=== PATIENT | female | born 1940 | race Caucasian/White ===

== ENCOUNTER 2017-10-04 14:02 | Emergency (ER) | payer MEDICARE, BC ==
[2017-10-04] MEDS ORDERED: Insulin Regular 300 UNITS/3 ML VIAL ONE (14:59)
[2017-10-04 15:31] LABS: #Basophils 0.1 thou/uL (0.0-0.2); #Lymphocytes 0.9 thou/uL (1.20-3.40); #Monocytes 0.5 thou/uL (0.11-0.59); %Basophils 1.8 % (0.0-1.0); %Eosinophils 0.6 % (0.0-10.0); %Monocytes 9.2 % (0.0-10.0); %Neutrophils 72.5 % (42.0-75.0); Hemoglobin 15.3 g/dL (12.0-16.0); Mean Corpuscular HGB CONC 35.6 g/dL (32.0-36.0); Mean Corpuscular Hemoglobin 31.9 pg (27.0-31.0); Mean Corpuscular Volume 89.5 fL (78.0-98.0); Platelet Count 216 thou/uL (130-400); RBC Distribution Width 10.1 % (11.5-14.5); Red Blood Cell (RBC) Count 4.81 mill/uL (4.20-5.40); White Blood Cell (WBC) Count 5.5 thou/uL (4.8-10.8)
[2017-10-04 15:41] LABS: Anion Gap 17 mmol/L (10-20); BUN (Urea Nitrogen) 17 mg/dL (9.8-20.1); Calc. Creatinine Clearance 0 mL/min (70-130); Calcium 9.8 mg/dL (7.8-10.44); Carbon Dioxide 22 mmol/L (23-31); Chloride 98 mmol/L (98-107); Estimated GFR-MDRD 50; Glucose 501 mg/dL (83-110); Magnesium 2.1 mg/dL (1.6-2.6); Phosphorus 3.4 mg/dL (2.3-4.7); Potassium 4.5 mmol/L (3.5-5.1); Sodium 132 mmol/L (136-145)
[2017-10-04 15:47] LABS: Base Excess-Venous 0.5 mmol/L (0 (+/- 2.5)); Bicarbonate (HCO3v) 26.3 mmol/L (1.0-85.0); CO2 Tension (PvCO2) 45.6 mmHg (41.0-51.0); Calcium, Ionized 1.16 mmol/L (1.12-1.32); Hemoglobin - Calc 16.2 g/dL (12.0-18.0); O2 Tension (PvO2) 26.5 mmHg (35.0-45.0); Potassium 4.1 mmol/L (3.4-4.7); T. Carbon Dioxide 27.7 mmol/L (1.0-85.0); vO2 Saturation-calc 46.6 % (94-98)
--- NOTE | 2017-10-04 19:18 | RAD ---
PORTABLE AP CHEST X-RAY 10/04/17 HISTORY: Fever. COMPARISON: 11/15/16. FINDINGS: The cardiac silhouette and pulmonary vasculature are within normal limits. The lungs are clear. Ther e is suggestion of a parenchymal opacity in the retrocardiac region left lung base on the prior study which is not seen on this exam. Vascular calcifications seen in the thoracic aorta. No other interva l change. IMPRESSION: No acute cardiopulmonary process. POS: [facility]
[2017-10-04 20:05] LABS: Bilirubin Negative (Negative); Blood, Urine Negative (Negative); Clarity Clear (Clear); Glucose, Urine (Dipstick) >=1000 mg/dL (Negative); Leukocyte Negative (Negative); Nitrite Negative (Negative); Protein, Urine (Dipstick) Negative (Neg-Trace); Specific Gravity, Urine 1.015 (1.005-1.030); Urobilinogen 0.2 mg/dL (0.2-1.0); pH, Urine 5.5 (5.0-9.0)
[2017-10-04] MEDS ORDERED: Ibuprofen 600 MG TAB ONE (20:23)
[2017-10-04] MEDS ORDERED: Acetaminophen 325 MG TAB ONE (20:23)
== END 2017-10-04 20:40 | disposition home or self-care (01) ==
LOC: SCSER 14:02
DX: E11.65 Type 2 diabetes mellitus with hyperglycemia (principal); N39.0 Urinary tract infection, site not specified; E78.5 Hyperlipidemia, unspecified; I10 Essential (primary) hypertension; Z79.4 Long term (current) use of insulin; Z79.82 Long term (current) use of aspirin; Z79.899 Other long term (current) drug therapy
CPT/HCPCS: 36416; 71045; 80048; 81003; 82010; 82330; 82803; 83735; 84100; 85025; 87086; 96361; 96374; 96376; J1815

== ENCOUNTER 2019-04-24 09:42 | Outpatient (CLI) | payer MEDICARE, BC | END 2019-04-24 09:43 | disposition home or self-care (01) | LOC: DTY/OP 09:42 | PROVIDERS: ATTEND Family Medicine | DX: E11.9 Type 2 diabetes mellitus without complications (principal) | CPT/HCPCS: 97802 ==

== ENCOUNTER 2022-03-11 14:35 | Outpatient (CLI) | payer MEDICARE, BC | END 2022-03-11 14:36 | disposition home or self-care (01) | LOC: BICCT 14:35 | PROVIDERS: ATTEND Family Medicine | DX: R55 Syncope and collapse (principal); I67.82 Cerebral ischemia; G93.89 Other specified disorders of brain; Z86.59 Personal history of other mental and behavioral disorders | CPT/HCPCS: 70470; 82565 ==

== ENCOUNTER 2022-04-22 21:02 | Emergency (ER) | payer OTHER, MEDICARE, BC | END 2022-04-22 23:10 | disposition home or self-care (01) | LOC: ERS 21:02 | DX: S06.0X0A Concussion without loss of consciousness, initial encounter (principal); E11.9 Type 2 diabetes mellitus without complications; E78.5 Hyperlipidemia, unspecified; I10 Essential (primary) hypertension; W01.0XXA Fall on same level from slipping, tripping and stumbling without subsequent striking against object, initial encounter; Z79.899 Other long term (current) drug therapy; Z79.82 Long term (current) use of aspirin | CPT/HCPCS: 70450; 93005 ==

== ENCOUNTER 2022-06-07 21:20 | Inpatient (IN) | payer MEDICARE, BC ==
[2022-06-07 22:48] VITALS: BMI 33.2
[2022-06-07] MEDS ORDERED: Ondansetron PF 4 MG/2 ML Vial IVP PRN (23:25)
[2022-06-07] MEDS ORDERED: Dextrose 50% Abboject 50 ML SYRINGE SLOW IVP PRN (23:25)
[2022-06-07] MEDS ORDERED: Dextrose 5% in Water 1,000 ML IV PRN (23:25)
[2022-06-07] MEDS ORDERED: Ondansetron ODT 4 MG TAB PO PRN (23:25)
[2022-06-08] MEDS ORDERED: Insulin Glargine 30 UNITS/0.3 ML VIAL SC SCH ×2 (00:15→21:00)
[2022-06-08] MEDS: DorzolamidE/Timolol 2%/0.5% Ophth Soln 10 ml Bottle EA EYE SCH ×3 (00:49→20:59)
[2022-06-08] MEDS: metroNIDAZOLE 500 MG in Premix Bag 1 BAG IVPB SCH ×3 (04:44→20:59)
[2022-06-08] MEDS: Acetaminophen 325 MG TAB PO PRN (08:22)
[2022-06-08] MEDS: Aspirin 81 mg Enteric Coated Tablet PO SCH (08:23)
[2022-06-08] MEDS: Lisinopril 5 MG TAB PO SCH (08:23)
[2022-06-08] MEDS: Multivitamin w/Zinc Stress 1 TAB PO SCH (08:23)
[2022-06-08] MEDS: Escitalopram Oxalate 10 mg Tablet PO SCH (08:23)
[2022-06-08] MEDS: Doxazosin Mesylate 1 MG TAB PO SCH (08:23)
[2022-06-08] MEDS: Latanoprost 0.005% Ophth Soln 2.5 ml Bottle EA EYE SCH (08:23)
[2022-06-08] MEDS: Insulin Glargine 30 UNITS/0.3 ML VIAL SC SCH (08:24)
[2022-06-08] MEDS: HumaLOG 300 UNITS/3 ML VIAL SC PRN ×2 (11:46→16:53)
[2022-06-08] MEDS ORDERED: cefTRIAXone\\ROCEPHIN 2 GM in Sodium Chloride 0.9% 100 ML IVPB SCH (18:00)
[2022-06-08] MEDS: Atorvastatin Calcium 40 MG TAB PO SCH (20:59)
[2022-06-09] MEDS: Acetaminophen 325 MG TAB PO PRN ×3 (01:29→23:50)
[2022-06-09] MEDS: metroNIDAZOLE 500 MG in Premix Bag 1 BAG IVPB SCH ×3 (04:51→20:58)
[2022-06-09 06:53] LABS: #Basophils 0.1 thou/uL (0.0-0.2); #Eosinphils 0.3 thou/uL (0.0-0.7); #Lymphocytes 2.2 thou/uL (1.20-3.40); #Monocytes 1.1 thou/uL (0.11-0.59); #Neutrophils 5.7 thou/uL (1.40-6.50); %Basophils 0.6 % (0.0-1.0); %Eosinophils 2.8 % (0.0-10.0); %Lymphocytes 23.6 % (21.0-51.0); %Monocytes 12.1 % (0.0-10.0); %Neutrophils 60.9 % (42.0-75.0); Hemoglobin 13.6 g/dL (12.0-16.0); Mean Corpuscular HGB CONC 34.8 g/dL (32.0-36.0); Mean Corpuscular Hemoglobin 34.2 pg (27.0-31.0); Mean Corpuscular Volume 98.3 fl (78.0-98.0); Mean Platelet Volume 7.7 fL (7.4-10.4); Platelet Count 250 10x3/uL (130-400); RBC Distribution Width 11.1 % (11.5-14.5); Red Blood Cell (RBC) Count 3.97 mill/uL (4.20-5.40); White Blood Cell (WBC) Count 9.3 10x3/uL (4.8-10.8)
[2022-06-09 07:09] LABS: Anion Gap 13 mmol/L (10-20); BUN (Urea Nitrogen) 16 mg/dL (9.8-20.1); Calc. Creatinine Clearance 83 mL/min (70-130); Calcium 8.7 mg/dL (7.8-10.44); Carbon Dioxide 22 mmol/L (23-31); Chloride 102 mmol/L (98-107); Estimated GFR 80; Glucose 112 mg/dL (83-110); Magnesium 1.9 mg/dL (1.6-2.6); Potassium 3.7 mmol/L (3.5-5.1); Sodium 133 mmol/L (136-145)
[2022-06-09] MEDS: DorzolamidE/Timolol 2%/0.5% Ophth Soln 10 ml Bottle EA EYE SCH ×2 (09:44→22:00)
[2022-06-09] MEDS: Latanoprost 0.005% Ophth Soln 2.5 ml Bottle EA EYE SCH (09:45)
[2022-06-09] MEDS: Doxazosin Mesylate 1 MG TAB PO SCH (09:48)
[2022-06-09] MEDS: Lisinopril 5 MG TAB PO SCH (09:48)
[2022-06-09] MEDS: Escitalopram Oxalate 10 mg Tablet PO SCH (09:48)
[2022-06-09] MEDS: Aspirin 81 mg Enteric Coated Tablet PO SCH (09:48)
[2022-06-09] MEDS: Multivitamin w/Zinc Stress 1 TAB PO SCH (09:50)
[2022-06-09] MEDS ORDERED: Magnevist 469MG/ML 20 ML VIAL ONE (10:11)
[2022-06-09] MEDS: Insulin Glargine 30 UNITS/0.3 ML VIAL SC SCH ×2 (10:11→22:02)
[2022-06-09] MEDS ORDERED: Lidocaine 1% w/Epinephrine 1:100K 20 ML VIAL ONE (10:30)
[2022-06-09] MEDS ORDERED: VANCOMYCIN 2 GRAM/500 ML BAG 2 GM in Premix Bag 1 BAG IVPB SCH (12:00)
[2022-06-09] MEDS ORDERED: TETANUS, DIPHTHERIA TOX,ADULT (TDVAX) 0.5 ML VIAL IM ONE (12:00)
[2022-06-09] MEDS: cefTRIAXone\\ROCEPHIN 1 GM in Sodium Chloride 0.9% 100 ML IVPB SCH ×2 (12:48→23:51)
[2022-06-09] MEDS ORDERED: HYDROcodone/Acetaminophen 5/325 mg Tablet PO PRN (15:05)
[2022-06-09] MEDS ORDERED: Vancomycin 1 GM in Premix Bag 1 BAG IVPB SCH (21:00)
[2022-06-09] MEDS ORDERED: Insulin Glargine 30 UNITS/0.3 ML VIAL SC SCH (21:00)
[2022-06-09] MEDS: Atorvastatin Calcium 40 MG TAB PO SCH (22:00)
[2022-06-10] MEDS: metroNIDAZOLE 500 MG in Premix Bag 1 BAG IVPB SCH ×3 (04:58→20:25)
[2022-06-10] MEDS ORDERED: Insulin Glargine 30 UNITS/0.3 ML VIAL SC SCH (09:00)
[2022-06-10] MEDS: Escitalopram Oxalate 10 mg Tablet PO SCH (09:04)
[2022-06-10] MEDS: Aspirin 81 mg Enteric Coated Tablet PO SCH (09:04)
[2022-06-10] MEDS: Multivitamin w/Zinc Stress 1 TAB PO SCH (09:04)
[2022-06-10] MEDS: Lisinopril 5 MG TAB PO SCH (09:04)
[2022-06-10] MEDS: Doxazosin Mesylate 1 MG TAB PO SCH (09:04)
[2022-06-10] MEDS: Insulin Glargine 30 UNITS/0.3 ML VIAL SC SCH ×2 (09:05→20:26)
[2022-06-10] MEDS: Latanoprost 0.005% Ophth Soln 2.5 ml Bottle EA EYE SCH (09:06)
[2022-06-10] MEDS: DorzolamidE/Timolol 2%/0.5% Ophth Soln 10 ml Bottle EA EYE SCH ×2 (10:30→20:25)
[2022-06-10] MEDS: cefTRIAXone\\ROCEPHIN 1 GM in Sodium Chloride 0.9% 100 ML IVPB SCH (10:30)
[2022-06-10] MEDS ORDERED: VANCOMYCIN 1.25 GM/250 ML BAG 1.25 GM in Premix Bag 1 BAG IVPB SCH (12:00)
[2022-06-10] MEDS: Atorvastatin Calcium 40 MG TAB PO SCH (20:26)
[2022-06-10] MEDS: Acetaminophen 325 MG TAB PO PRN (21:45)
[2022-06-11] MEDS: metroNIDAZOLE 500 MG in Premix Bag 1 BAG IVPB SCH ×3 (04:15→20:45)
[2022-06-11 09:20] LABS: #Basophils 0.1 thou/uL (0.0-0.2); #Eosinphils 0.5 thou/uL (0.0-0.7); #Neutrophils 5.6 thou/uL (1.40-6.50); %Basophils 0.6 % (0.0-1.0); %Eosinophils 5.8 % (0.0-10.0); %Monocytes 10.8 % (0.0-10.0); %Neutrophils 60.8 % (42.0-75.0); Hemoglobin 14.7 g/dL (12.0-16.0); Mean Corpuscular HGB CONC 34.2 g/dL (32.0-36.0); Mean Corpuscular Hemoglobin 33.9 pg (27.0-31.0); Mean Corpuscular Volume 98.9 fl (78.0-98.0); Mean Platelet Volume 7.2 fL (7.4-10.4); Platelet Count 321 10x3/uL (130-400); RBC Distribution Width 11.3 % (11.5-14.5); Red Blood Cell (RBC) Count 4.34 mill/uL (4.20-5.40); White Blood Cell (WBC) Count 9.2 10x3/uL (4.8-10.8)
[2022-06-11] MEDS: Doxazosin Mesylate 1 MG TAB PO SCH (09:21)
[2022-06-11] MEDS: Aspirin 81 mg Enteric Coated Tablet PO SCH (09:21)
[2022-06-11] MEDS: Multivitamin w/Zinc Stress 1 TAB PO SCH (09:21)
[2022-06-11] MEDS: Escitalopram Oxalate 10 mg Tablet PO SCH (09:21)
[2022-06-11] MEDS: Lisinopril 5 MG TAB PO SCH (09:21)
[2022-06-11] MEDS: Insulin Glargine 30 UNITS/0.3 ML VIAL SC SCH ×2 (09:22→20:46)
[2022-06-11] MEDS: Latanoprost 0.005% Ophth Soln 2.5 ml Bottle EA EYE SCH (09:27)
[2022-06-11 09:50] LABS: Anion Gap 12 mmol/L (10-20); BUN (Urea Nitrogen) 14 mg/dL (9.8-20.1); Calc. Creatinine Clearance 80 mL/min (70-130); Calcium 9.2 mg/dL (7.8-10.44); Carbon Dioxide 23 mmol/L (23-31); Chloride 101 mmol/L (98-107); Estimated GFR 77; Glucose 174 mg/dL (83-110); Potassium 4.4 mmol/L (3.5-5.1); Sodium 132 mmol/L (136-145)
[2022-06-11] MEDS: cefTRIAXone\\ROCEPHIN 1 GM in Sodium Chloride 0.9% 100 ML IVPB SCH ×3 (10:57→23:30)
[2022-06-11] MEDS: DorzolamidE/Timolol 2%/0.5% Ophth Soln 10 ml Bottle EA EYE SCH ×2 (11:02→20:45)
[2022-06-11 11:27] LABS: Vancomycin, Trough 5.6 ug/mL
[2022-06-11] MEDS: Vancomycin 1 GM in Premix Bag 1 BAG IVPB SCH (13:43)
[2022-06-11] MEDS: Atorvastatin Calcium 40 MG TAB PO SCH (20:45)
[2022-06-11] MEDS: HumaLOG 300 UNITS/3 ML VIAL SC PRN (20:47)
[2022-06-12] MEDS: Vancomycin 1 GM in Premix Bag 1 BAG IVPB SCH (00:55)
[2022-06-12] MEDS: metroNIDAZOLE 500 MG in Premix Bag 1 BAG IVPB SCH (04:20)
[2022-06-12] MEDS: Acetaminophen 325 MG TAB PO PRN ×3 (04:30→21:12)
[2022-06-12 08:08] LABS: #Eosinphils 0.3 thou/uL (0.0-0.7); #Lymphocytes 2.1 thou/uL (1.20-3.40); #Monocytes 1.2 thou/uL (0.11-0.59); #Neutrophils 7.5 thou/uL (1.40-6.50); %Basophils 0.4 % (0.0-1.0); %Eosinophils 2.9 % (0.0-10.0); %Lymphocytes 18.5 % (21.0-51.0); %Neutrophils 67.2 % (42.0-75.0); Hemoglobin 13.8 g/dL (12.0-16.0); Mean Corpuscular HGB CONC 34.4 g/dL (32.0-36.0); Mean Corpuscular Hemoglobin 33.7 pg (27.0-31.0); Mean Platelet Volume 7.2 fL (7.4-10.4); Platelet Count 298 10x3/uL (130-400); RBC Distribution Width 11.2 % (11.5-14.5); Red Blood Cell (RBC) Count 4.11 mill/uL (4.20-5.40); White Blood Cell (WBC) Count 11.2 10x3/uL (4.8-10.8)
[2022-06-12 08:35] LABS: Anion Gap 13 mmol/L (10-20); BUN (Urea Nitrogen) 13 mg/dL (9.8-20.1); Calc. Creatinine Clearance 85 mL/min (70-130); Calcium 8.9 mg/dL (7.8-10.44); Carbon Dioxide 23 mmol/L (23-31); Chloride 100 mmol/L (98-107); Estimated GFR 83; Glucose 122 mg/dL (83-110); Potassium 3.8 mmol/L (3.5-5.1); Sodium 132 mmol/L (136-145)
[2022-06-12] MEDS: Escitalopram Oxalate 10 mg Tablet PO SCH (08:53)
[2022-06-12] MEDS: Multivitamin w/Zinc Stress 1 TAB PO SCH (08:53)
[2022-06-12] MEDS: Doxazosin Mesylate 1 MG TAB PO SCH (08:53)
[2022-06-12] MEDS: Lisinopril 5 MG TAB PO SCH (08:53)
[2022-06-12] MEDS: Aspirin 81 mg Enteric Coated Tablet PO SCH (08:53)
[2022-06-12] MEDS: DorzolamidE/Timolol 2%/0.5% Ophth Soln 10 ml Bottle EA EYE SCH ×2 (08:55→21:06)
[2022-06-12] MEDS: Insulin Glargine 30 UNITS/0.3 ML VIAL SC SCH ×2 (08:56→21:06)
[2022-06-12] MEDS ORDERED: metroNIDAZOLE 500 MG TAB PO SCH (10:05)
[2022-06-12] MEDS ORDERED: Doxycycline 100 MG CAP PO SCH (10:05)
[2022-06-12] MEDS ORDERED: Cefdinir 300 MG CAP PO SCH (10:05)
[2022-06-12] MEDS: Latanoprost 0.005% Ophth Soln 2.5 ml Bottle EA EYE SCH (10:44)
[2022-06-12] MEDS: metroNIDAZOLE 500 MG TAB PO SCH ×2 (14:48→21:06)
[2022-06-12] MEDS: Doxycycline 100 MG CAP PO SCH (21:06)
[2022-06-12] MEDS: Cefdinir 300 MG CAP PO SCH (21:06)
[2022-06-12] MEDS: Atorvastatin Calcium 40 MG TAB PO SCH (21:06)
[2022-06-13] MEDS: metroNIDAZOLE 500 MG TAB PO SCH ×3 (10:37→21:33)
[2022-06-13] MEDS: Doxazosin Mesylate 1 MG TAB PO SCH (10:37)
[2022-06-13] MEDS: Doxycycline 100 MG CAP PO SCH ×2 (10:37→21:33)
[2022-06-13] MEDS: Escitalopram Oxalate 10 mg Tablet PO SCH (10:37)
[2022-06-13] MEDS: Cefdinir 300 MG CAP PO SCH ×2 (10:37→21:33)
[2022-06-13] MEDS: Aspirin 81 mg Enteric Coated Tablet PO SCH (10:37)
[2022-06-13] MEDS: Lisinopril 5 MG TAB PO SCH (10:37)
[2022-06-13] MEDS: DorzolamidE/Timolol 2%/0.5% Ophth Soln 10 ml Bottle EA EYE SCH ×2 (10:37→21:34)
[2022-06-13] MEDS: Multivitamin w/Zinc Stress 1 TAB PO SCH (10:37)
[2022-06-13] MEDS: Latanoprost 0.005% Ophth Soln 2.5 ml Bottle EA EYE SCH (10:38)
[2022-06-13] MEDS: Insulin Glargine 30 UNITS/0.3 ML VIAL SC SCH ×2 (10:38→21:34)
[2022-06-13] MEDS: Acetaminophen 325 MG TAB PO PRN (10:43)
[2022-06-13] MEDS: HumaLOG 300 UNITS/3 ML VIAL SC PRN ×2 (18:18→21:33)
[2022-06-13] MEDS: Atorvastatin Calcium 40 MG TAB PO SCH (21:33)
[2022-06-14] MEDS: Acetaminophen 325 MG TAB PO PRN (06:17)
[2022-06-14 07:44] VITALS: BP 125/73; TEMP 98.4
[2022-06-14] MEDS: Doxazosin Mesylate 1 MG TAB PO SCH (08:45)
[2022-06-14] MEDS: Aspirin 81 mg Enteric Coated Tablet PO SCH (08:45)
[2022-06-14] MEDS: Doxycycline 100 MG CAP PO SCH (08:45)
[2022-06-14] MEDS: Multivitamin w/Zinc Stress 1 TAB PO SCH (08:45)
[2022-06-14] MEDS: Lisinopril 5 MG TAB PO SCH (08:45)
[2022-06-14] MEDS: Escitalopram Oxalate 10 mg Tablet PO SCH (08:45)
[2022-06-14] MEDS: Insulin Glargine 30 UNITS/0.3 ML VIAL SC SCH (08:45)
[2022-06-14] MEDS: metroNIDAZOLE 500 MG TAB PO SCH ×2 (08:45→14:50)
[2022-06-14] MEDS: Cefdinir 300 MG CAP PO SCH (08:45)
[2022-06-14] MEDS: DorzolamidE/Timolol 2%/0.5% Ophth Soln 10 ml Bottle EA EYE SCH (10:03)
[2022-06-14] MEDS: Latanoprost 0.005% Ophth Soln 2.5 ml Bottle EA EYE SCH (10:03)
== END 2022-06-14 17:28 | DRG 603 ==
LOC: T4-B 22:40 → OBSVTOIN 23:25
PROVIDERS: ADMIT Student in an Organized Health Care Education/Training Program; ATTEND Family Medicine
PROC: 0J9G0ZZ Drainage of Right Lower Arm Subcutaneous Tissue and Fascia, Open Approach (ICD-10-PCS; principal; 2022-06-07)
DX: L03.113 Cellulitis of right upper limb (principal); S51.851A Open bite of right forearm, initial encounter; W55.01XA Bitten by cat, initial encounter; I10 Essential (primary) hypertension; E78.5 Hyperlipidemia, unspecified; E11.9 Type 2 diabetes mellitus without complications; H40.9 Unspecified glaucoma; F32.A Depression, unspecified; Z88.0 Allergy status to penicillin; Z88.5 Allergy status to narcotic agent; Z79.4 Long term (current) use of insulin; Z79.82 Long term (current) use of aspirin; Z79.899 Other long term (current) drug therapy; Z90.09 Acquired absence of other part of head and neck; L02.413 Cutaneous abscess of right upper limb; S82.832A Other fracture of upper and lower end of left fibula, initial encounter for closed fracture; X58.XXXA Exposure to other specified factors, initial encounter
CPT/HCPCS: 36415; 36416; 80048; 80053; 80202; 83605; 83735; 85025; 86140; 87070; 87205; 90471; 90715; 93005; 93010; 96365; 96367; A9579; J0696; J1815; J3370; J3370-JW; J3490

== ENCOUNTER 2023-02-19 16:25 | Inpatient (IN) | payer OTHER, MEDICARE, BC ==
[2023-02-19 17:12] LABS: #Basophils 0.1 thou/uL (0.0-0.2); #Eosinphils 0.2 thou/uL (0.0-0.7); #Monocytes 0.7 thou/uL (0.11-0.59); #Neutrophils 4.7 thou/uL (1.40-6.50); %Basophils 1.2 % (0.0-1.0); %Lymphocytes 24.5 % (21.0-51.0); %Monocytes 9.4 % (0.0-10.0); %Neutrophils 62.1 % (42.0-75.0); Hematocrit 45.5 % (36.0-47.0); Hemoglobin 15.2 g/dL (12.0-16.0); Mean Corpuscular HGB CONC 33.4 g/dL (32.0-36.0); Mean Corpuscular Hemoglobin 31.7 pg (27.0-31.0); Mean Platelet Volume 9.3 fL (7.4-10.4); Platelet Count 332 10x3/uL (130-400); Red Blood Cell (RBC) Count 4.79 mill/uL (4.20-5.40); White Blood Cell (WBC) Count 7.6 10x3/uL (4.8-10.8)
[2023-02-19 17:39] LABS: ALT (SGPT) 20 U/L (8-55); AST (SGOT) 21 U/L (5-34); Albumin 4.1 g/dL (3.4-4.8); Alkaline Phosphatase 62 U/L (40-110); Anion Gap 15 mmol/L (10-20); BUN (Urea Nitrogen) 18 mg/dL (9.8-20.1); Bilirubin, Total 0.4 mg/dL (0.2-1.2); CK (CPK) 73 U/L (29-168); Calc. Creatinine Clearance 0 mL/min (70-130); Calcium 9.4 mg/dL (7.8-10.44); Carbon Dioxide 25 mmol/L (23-31); Chloride 100 mmol/L (98-107); Estimated GFR 69; Globulin 3.3 g/dL (2.4-3.5); Glucose 206 mg/dL (83-110); Lipase 168 U/L (8-78); Potassium 3.9 mmol/L (3.5-5.1); Protein, Total 7.4 g/dL (5.8-8.1); Sodium 136 mmol/L (136-145)
[2023-02-19 17:43] LABS: Troponin I Less than 0.010 ng/mL (< 0.028)
[2023-02-19 18:26] LABS: Prothrombin Time 13.9 sec (12.0-14.7)
[2023-02-19] MEDS ORDERED: Lidocaine 1% PF 5 ML VIAL ONE ×2 (18:47→18:48)
[2023-02-19] MEDS ORDERED: Ondansetron ODT 4 MG TAB PO PRN (20:36)
[2023-02-19] MEDS ORDERED: TETANUS, DIPHTHERIA TOX,ADULT (TDVAX) 0.5 ML VIAL IM ONE (20:36)
[2023-02-19] MEDS ORDERED: Glucagon 1 MG/ML KIT IM PRN (20:36)
[2023-02-19] MEDS ORDERED: Dextrose 50% Abboject 50 ML SYRINGE SLOW IVP PRN (20:36)
[2023-02-19] MEDS ORDERED: Dextrose 5% in Water 1,000 ML IV PRN (20:36)
[2023-02-19] MEDS ORDERED: Lidocaine 1% w/Epinephrine 1:100K 20 ML VIAL ONE (21:23)
[2023-02-19] MEDS: Famotidine 20 MG TAB PO SCH (21:53)
[2023-02-19] MEDS: traMADol HCl 50 MG TAB PO PRN (21:54)
[2023-02-19] MEDS: Ondansetron PF 4 MG/2 ML Vial IVP PRN (21:54)
[2023-02-19] MEDS ORDERED: Scopolamine 1 mg/72 hour Patch TD SCH (22:00)
[2023-02-19 22:47] LABS: Troponin I 0.016 ng/mL (< 0.028)
[2023-02-19] MEDS: Insulin Glargine 30 UNITS/0.3 ML VIAL SC SCH (23:19)
[2023-02-20] MEDS: Acetaminophen 325 MG TAB PO PRN ×4 (01:02→22:16)
[2023-02-20 02:14] LABS: Bilirubin Negative (Negative); Blood, Urine Negative (Negative); CAUTI Indications for Culture Alt mental st,lethar; Clarity Clear (Clear); Glucose, Urine (Dipstick) Greater than 1000 mg/dL (Negative); Ketone, Urine Negative (Negative); Leukocyte Negative Leu/uL (Negative); Nitrite Negative (Negative); Protein, Urine (Dipstick) Negative (Neg-Trace); RBC/HPF 0-3 HPF (0-3); Specific Gravity, Urine 1.038 (1.002-1.036); Squamous Epithelial 0-3 HPF (0-3); Urobilinogen Normal mg/dL (Less than 2); WBC/HPF 0-3 HPF (0-3); pH, Urine 6.5 (5.0-9.0)
[2023-02-20 02:15] LABS: Bacteria/HPF 4+ HPF (None Seen)
[2023-02-20 02:16] LABS: Urine Culture Reflex No No
[2023-02-20 05:01] LABS: Troponin I Less than 0.010 ng/mL (< 0.028)
[2023-02-20 09:02] LABS: Troponin I Less than 0.010 ng/mL (< 0.028)
[2023-02-20] MEDS: HumaLOG 300 UNITS/3 ML VIAL SC PRN ×2 (13:15→18:48)
[2023-02-20] MEDS: Insulin Glargine 30 UNITS/0.3 ML VIAL SC SCH (20:50)
[2023-02-20] MEDS: Famotidine 20 MG TAB PO SCH (20:50)
[2023-02-21 05:55] LABS: #Basophils 0.1 thou/uL (0.0-0.2); #Eosinphils 0.2 thou/uL (0.0-0.7); %Basophils 1.1 % (0.0-1.0); %Eosinophils 2.6 % (0.0-10.0); %Lymphocytes 30.5 % (21.0-51.0); %Monocytes 10.4 % (0.0-10.0); %Neutrophils 54.9 % (42.0-75.0); Mean Corpuscular HGB CONC 34.1 g/dL (32.0-36.0); Mean Corpuscular Hemoglobin 32.4 pg (27.0-31.0); Mean Corpuscular Volume 94.9 fl (78.0-98.0); Mean Platelet Volume 9.5 fL (7.4-10.4); Platelet Count 281 10x3/uL (130-400); RBC Distribution Width 11.9 % (11.5-14.5); Red Blood Cell (RBC) Count 4.32 mill/uL (4.20-5.40); White Blood Cell (WBC) Count 9.1 10x3/uL (4.8-10.8)
[2023-02-21 06:17] LABS: Anion Gap 14 mmol/L (10-20); BUN (Urea Nitrogen) 15 mg/dL (9.8-20.1); Calc. Creatinine Clearance 75 mL/min (70-130); Calcium 8.6 mg/dL (7.8-10.44); Carbon Dioxide 25 mmol/L (23-31); Chloride 98 mmol/L (98-107); Estimated GFR 76; Glucose 128 mg/dL (83-110); Magnesium 1.8 mg/dL (1.6-2.6); Phosphorus 3.1 mg/dL (2.3-4.7); Potassium 3.5 mmol/L (3.5-5.1); Sodium 133 mmol/L (136-145)
[2023-02-21 06:35] VITALS: BMI 30.4
[2023-02-21] MEDS: Acetaminophen 325 MG TAB PO PRN (06:48)
[2023-02-21] MEDS: traMADol HCl 50 MG TAB PO PRN (08:50)
[2023-02-21] MEDS: Ondansetron PF 4 MG/2 ML Vial IVP PRN (08:50)
[2023-02-21] MEDS: HumaLOG 300 UNITS/3 ML VIAL SC PRN (12:41)
[2023-02-21 12:46] VITALS: BP 131/53; TEMP 98.3
[2023-02-21] MEDS ORDERED: Triple Antibiotic Ointment 15 GM TUBE TOP SCH (21:00)
[2023-02-22] MEDS ORDERED: Polyethylene Glycol 3350 17 GM Packet PO SCH (09:00)
[2023-02-22] MEDS ORDERED: Senokot 8.6 MG TAB PO SCH (09:00)
== END 2023-02-21 14:23 | disposition home or self-care (01) | DRG 84 ==
LOC: ERS 16:25 → 2SE 19:26 → OBSVTOIN 02-20 15:58
PROVIDERS: ADMIT Surgery; ATTEND Surgery
PROC: 0HQ0XZZ Repair Scalp Skin, External Approach (ICD-10-PCS; principal; 2023-02-19)
PROC: 0HQ0XZZ Repair Scalp Skin, External Approach (ICD-10-PCS; 2023-02-19)
PROC: 0HC0XZZ Extirpation of Matter from Scalp Skin, External Approach (ICD-10-PCS; 2023-02-19)
DX: S06.6X9A Traumatic subarachnoid hemorrhage with loss of consciousness of unspecified duration, initial encounter (principal); S01.01XA Laceration without foreign body of scalp, initial encounter; I10 Essential (primary) hypertension; E78.5 Hyperlipidemia, unspecified; Z79.899 Other long term (current) drug therapy; Z79.4 Long term (current) use of insulin; F32.A Depression, unspecified; E11.9 Type 2 diabetes mellitus without complications; Z90.710 Acquired absence of both cervix and uterus; Z90.49 Acquired absence of other specified parts of digestive tract; Z83.3 Family history of diabetes mellitus; Z88.0 Allergy status to penicillin; Z88.8 Allergy status to other drugs, medicaments and biological substances; Z79.82 Long term (current) use of aspirin; W01.198A Fall on same level from slipping, tripping and stumbling with subsequent striking against other object, initial encounter
CPT/HCPCS: 12001; 36415; 36416; 70450; 71045; 72125; 80048; 80053; 81001; 82550; 83690; 83735; 84100; 84443; 84484; 85025; 85610; 85730; 93005; 93880; 96374; G0378; J1815; J2405

== ENCOUNTER 2023-05-07 11:37 | Inpatient (IN) | payer MEDICARE, BC ==
[2023-05-07] MEDS ORDERED: Ondansetron PF 4 MG/2 ML Vial ONE (12:14)
[2023-05-07] MEDS ORDERED: Acetaminophen 500 MG TAB ONE (12:14)
[2023-05-07 12:32] LABS: #Basophils 0.1 thou/uL (0.0-0.2); #Eosinphils 0.1 thou/uL (0.0-0.7); #Monocytes 0.9 thou/uL (0.11-0.59); #Neutrophils 4.7 thou/uL (1.40-6.50); %Basophils 0.9 % (0.0-1.0); %Eosinophils 1.3 % (0.0-10.0); %Lymphocytes 14.9 % (21.0-51.0); %Monocytes 13.2 % (0.0-10.0); %Neutrophils 69.1 % (42.0-75.0); Hematocrit 41.7 % (36.0-47.0); Mean Corpuscular HGB CONC 33.6 g/dL (32.0-36.0); Mean Corpuscular Hemoglobin 31.8 pg (27.0-31.0); Mean Corpuscular Volume 94.8 fl (78.0-98.0); Mean Platelet Volume 9.8 fL (7.4-10.4); Platelet Count 237 10x3/uL (130-400); RBC Distribution Width 12.3 % (11.5-14.5); White Blood Cell (WBC) Count 6.8 10x3/uL (4.8-10.8)
[2023-05-07 12:45] LABS: INR-International Normal Ratio 1.1; Prothrombin Time 14.3 sec (12.0-14.7)
[2023-05-07 12:46] LABS: PTT 30.7 sec (22.9-36.1)
[2023-05-07 12:55] LABS: ALT (SGPT) 25 U/L (8-55); AST (SGOT) 23 U/L (5-34); Albumin 3.9 g/dL (3.4-4.8); Alkaline Phosphatase 59 U/L (40-110); Anion Gap 12 mmol/L (10-20); BUN (Urea Nitrogen) 11 mg/dL (9.8-20.1); Bilirubin, Total 0.6 mg/dL (0.2-1.2); Calc. Creatinine Clearance 0 mL/min (70-130); Calcium 8.8 mg/dL (7.8-10.44); Carbon Dioxide 24 mmol/L (23-31); Chloride 102 mmol/L (98-107); Estimated GFR 81; Globulin 3.1 g/dL (2.4-3.5); Glucose 86 mg/dL (83-110); Sodium 134 mmol/L (136-145)
[2023-05-07 12:59] LABS: Troponin I 0.019 ng/mL (< 0.028)
[2023-05-07] MEDS ORDERED: Dextrose 50% Abboject 50 ML SYRINGE SLOW IVP PRN (13:37)
[2023-05-07] MEDS ORDERED: Dextrose 5% in Water 1,000 ML IV PRN (13:37)
[2023-05-07] MEDS ORDERED: Glucagon 1 MG/ML KIT IM PRN (13:37)
[2023-05-07 14:10] LABS: Hemoglobin A1c 8.4 % (4.0-6.0)
[2023-05-07 14:29] LABS: Troponin I Less than 0.010 ng/mL (< 0.028)
[2023-05-07 15:32] VITALS: BMI 32.9
[2023-05-07] MEDS: Bacitracin 1 PK TOP SCH (16:22)
[2023-05-07 17:27] LABS: Troponin I Less than 0.010 ng/mL (< 0.028)
[2023-05-07] MEDS: Boostrix 0.5 ML (Tdap) VIAL (>/=7 yrs of age) IM ONE (20:17)
[2023-05-07] MEDS: Latanoprost 0.005% Ophth Soln 2.5 ml Bottle EA EYE SCH (20:20)
[2023-05-08] MEDS: Acetaminophen 325 MG TAB PO PRN (00:16)
[2023-05-08 05:10] LABS: #Basophils 0.1 thou/uL (0.0-0.2); #Eosinphils 0.1 thou/uL (0.0-0.7); #Monocytes 1.1 thou/uL (0.11-0.59); #Neutrophils 4.4 thou/uL (1.40-6.50); %Basophils 0.8 % (0.0-1.0); %Eosinophils 1.3 % (0.0-10.0); %Lymphocytes 21.3 % (21.0-51.0); %Monocytes 14.6 % (0.0-10.0); %Neutrophils 61.4 % (42.0-75.0); Hematocrit 38.4 % (36.0-47.0); Mean Corpuscular HGB CONC 33.9 g/dL (32.0-36.0); Mean Corpuscular Hemoglobin 32.1 pg (27.0-31.0); Mean Corpuscular Volume 94.8 fl (78.0-98.0); Mean Platelet Volume 10.3 fL (7.4-10.4); Platelet Count 241 10x3/uL (130-400); RBC Distribution Width 12.3 % (11.5-14.5); Red Blood Cell (RBC) Count 4.05 mill/uL (4.20-5.40); White Blood Cell (WBC) Count 7.2 10x3/uL (4.8-10.8)
[2023-05-08 05:32] LABS: ALT (SGPT) 22 U/L (8-55); AST (SGOT) 19 U/L (5-34); Albumin 3.5 g/dL (3.4-4.8); Alkaline Phosphatase 54 U/L (40-110); Bilirubin, Direct 0.2 mg/dL (0.1-0.3); Bilirubin, Total 0.5 mg/dL (0.2-1.2); Protein, Total 6.1 g/dL (5.8-8.1)
[2023-05-08 05:45] LABS: Anion Gap 8 mmol/L (10-20); BUN (Urea Nitrogen) 12 mg/dL (9.8-20.1); Calc. Creatinine Clearance 87 mL/min (70-130); Calcium 8.3 mg/dL (7.8-10.44); Carbon Dioxide 23 mmol/L (23-31); Cardiac Risk 3.7 (Less than 4.5); Chloride 102 mmol/L (98-107); Cholesterol 88 mg/dl (< 200 Desired); Estimated GFR 87; Glucose 135 mg/dL (83-110); HDL Cholesterol 24 mg/dL (>60 Neg Risk); LDL Cholesterol, Calculated 43 mg/dL; Potassium 3.4 mmol/L (3.5-5.1); Sodium 130 mmol/L (136-145); Triglycerides 107 mg/dL (Less than 150)
[2023-05-08 05:54] LABS: Thyroid Stimulating Hormone 1.6747 uIU/mL (0.35-4.94)
[2023-05-08] MEDS: Empagliflozin 25 MG TAB PO SCH (08:47)
[2023-05-08] MEDS: Doxazosin Mesylate 1 MG TAB PO SCH (08:47)
[2023-05-08] MEDS: Lisinopril 2.5 MG TAB PO SCH (08:47)
[2023-05-08] MEDS: Multivitamin w/Zinc Stress 1 TAB PO SCH (08:47)
[2023-05-08] MEDS: Escitalopram Oxalate 10 mg Tablet PO SCH (08:47)
[2023-05-08] MEDS: Atorvastatin Calcium 20 MG TAB PO SCH (08:47)
[2023-05-08] MEDS: Potassium Chloride 20 MEQ TAB PO SCH (08:47)
[2023-05-08 13:04] LABS: Bacteria/HPF None Seen HPF (None Seen); Bilirubin Negative (Negative); Blood, Urine Negative (Negative); CAUTI Indications for Culture Fever or rigors; Clarity Clear (Clear); Glucose, Urine (Dipstick) Greater than 1000 mg/dL (Negative); Ketone, Urine Negative (Negative); Leukocyte Negative Leu/uL (Negative); Nitrite Negative (Negative); Protein, Urine (Dipstick) Negative (Neg-Trace); RBC/HPF 0-3 HPF (0-3); Specific Gravity, Urine 1.033 (1.002-1.036); Squamous Epithelial 0-3 HPF (0-3); Urobilinogen Normal mg/dL (Less than 2); WBC/HPF 0-3 HPF (0-3)
[2023-05-08 13:06] LABS: Urine Culture Reflex No No
[2023-05-09 05:26] LABS: #Basophils 0.1 thou/uL (0.0-0.2); #Eosinphils 0.1 thou/uL (0.0-0.7); #Monocytes 1.2 thou/uL (0.11-0.59); #Neutrophils 5.4 thou/uL (1.40-6.50); %Basophils 0.8 % (0.0-1.0); %Eosinophils 0.8 % (0.0-10.0); %Lymphocytes 14.7 % (21.0-51.0); %Monocytes 14.9 % (0.0-10.0); %Neutrophils 68.3 % (42.0-75.0); Hematocrit 42.3 % (36.0-47.0); Hemoglobin 14.4 g/dL (12.0-16.0); Mean Corpuscular Hemoglobin 31.8 pg (27.0-31.0); Mean Corpuscular Volume 93.4 fl (78.0-98.0); Mean Platelet Volume 10.4 fL (7.4-10.4); Platelet Count 233 10x3/uL (130-400); RBC Distribution Width 12.1 % (11.5-14.5); Red Blood Cell (RBC) Count 4.53 mill/uL (4.20-5.40)
[2023-05-09 05:44] LABS: Anion Gap 14 mmol/L (10-20); BUN (Urea Nitrogen) 12 mg/dL (9.8-20.1); Calc. Creatinine Clearance 84 mL/min (70-130); Calcium 8.8 mg/dL (7.8-10.44); Carbon Dioxide 23 mmol/L (23-31); Chloride 97 mmol/L (98-107); Estimated GFR 84; Glucose 117 mg/dL (83-110); Magnesium 1.9 mg/dL (1.6-2.6); Potassium 3.7 mmol/L (3.5-5.1); Sodium 130 mmol/L (136-145)
[2023-05-09] MEDS: Scopolamine 1 mg/72 hour Patch TD SCH (17:52)
[2023-05-09] MEDS: HumaLOG 300 UNITS/3 ML VIAL SC PRN (17:57)
[2023-05-10] MEDS: Ondansetron PF 4 MG/2 ML Vial IVP PRN (00:25)
[2023-05-10 05:19] LABS: #Basophils 0.1 thou/uL (0.0-0.2); #Eosinphils 0.1 thou/uL (0.0-0.7); #Monocytes 1.2 thou/uL (0.11-0.59); #Neutrophils 3.8 thou/uL (1.40-6.50); %Basophils 0.8 % (0.0-1.0); %Eosinophils 0.9 % (0.0-10.0); %Lymphocytes 22.5 % (21.0-51.0); %Monocytes 17.7 % (0.0-10.0); %Neutrophils 57.3 % (42.0-75.0); Hematocrit 40.9 % (36.0-47.0); Hemoglobin 14.2 g/dL (12.0-16.0); Mean Corpuscular HGB CONC 34.7 g/dL (32.0-36.0); Mean Corpuscular Hemoglobin 31.7 pg (27.0-31.0); Mean Corpuscular Volume 91.3 fl (78.0-98.0); Mean Platelet Volume 9.7 fL (7.4-10.4); Platelet Count 252 10x3/uL (130-400); RBC Distribution Width 11.9 % (11.5-14.5); Red Blood Cell (RBC) Count 4.48 mill/uL (4.20-5.40); White Blood Cell (WBC) Count 6.5 10x3/uL (4.8-10.8)
[2023-05-10 05:43] LABS: Anion Gap 16 mmol/L (10-20); BUN (Urea Nitrogen) 15 mg/dL (9.8-20.1); Calc. Creatinine Clearance 84 mL/min (70-130); Calcium 8.4 mg/dL (7.8-10.44); Carbon Dioxide 23 mmol/L (23-31); Chloride 94 mmol/L (98-107); Estimated GFR 84; Glucose 116 mg/dL (83-110); Magnesium 1.9 mg/dL (1.6-2.6); Potassium 3.8 mmol/L (3.5-5.1); Sodium 129 mmol/L (136-145)
[2023-05-10 12:41] LABS: Anion Gap 14 mmol/L (10-20); BUN (Urea Nitrogen) 16 mg/dL (9.8-20.1); Calc. Creatinine Clearance 82 mL/min (70-130); Calcium 8.9 mg/dL (7.8-10.44); Carbon Dioxide 24 mmol/L (23-31); Chloride 95 mmol/L (98-107); Estimated GFR 81; Glucose 112 mg/dL (83-110); Potassium 4.2 mmol/L (3.5-5.1); Sodium 129 mmol/L (136-145)
[2023-05-10] MEDS ORDERED: Lidocaine 1% w/Epinephrine 1:100K 20 ML VIAL ONE ×2 (13:30→13:40)
[2023-05-10] MEDS: HumaLOG 300 UNITS/3 ML VIAL SC PRN (20:37)
[2023-05-11 05:03] LABS: Anion Gap 14 mmol/L (10-20); BUN (Urea Nitrogen) 18 mg/dL (9.8-20.1); Calc. Creatinine Clearance 76 mL/min (70-130); Calcium 8.7 mg/dL (7.8-10.44); Carbon Dioxide 22 mmol/L (23-31); Chloride 95 mmol/L (98-107); Estimated GFR 74; Glucose 144 mg/dL (83-110); Potassium 3.8 mmol/L (3.5-5.1); Sodium 127 mmol/L (136-145)
[2023-05-11 05:24] LABS: #Basophils 0.1 thou/uL (0.0-0.2); #Monocytes 1.2 thou/uL (0.11-0.59); #Neutrophils 4.3 thou/uL (1.40-6.50); %Basophils 0.8 % (0.0-1.0); %Eosinophils 0.6 % (0.0-10.0); %Lymphocytes 20.8 % (21.0-51.0); %Monocytes 17.2 % (0.0-10.0); %Neutrophils 59.6 % (42.0-75.0); Hematocrit 41.3 % (36.0-47.0); Hemoglobin 14.3 g/dL (12.0-16.0); Mean Corpuscular HGB CONC 34.6 g/dL (32.0-36.0); Mean Corpuscular Volume 92.4 fl (78.0-98.0); Mean Platelet Volume 9.6 fL (7.4-10.4); Platelet Count 301 10x3/uL (130-400); RBC Distribution Width 12.1 % (11.5-14.5); Red Blood Cell (RBC) Count 4.47 mill/uL (4.20-5.40); White Blood Cell (WBC) Count 7.2 10x3/uL (4.8-10.8)
[2023-05-11 11:03] LABS: Anion Gap 14 mmol/L (10-20); BUN (Urea Nitrogen) 20 mg/dL (9.8-20.1); Calc. Creatinine Clearance 77 mL/min (70-130); Carbon Dioxide 21 mmol/L (23-31); Chloride 96 mmol/L (98-107); Estimated GFR 75; Glucose 200 mg/dL (83-110); Potassium 4.2 mmol/L (3.5-5.1); Sodium 127 mmol/L (136-145)
[2023-05-11] MEDS: Escitalopram Oxalate 10 mg Tablet PO SCH (11:47)
[2023-05-11] MEDS: HumaLOG 300 UNITS/3 ML VIAL SC PRN (11:49)
[2023-05-11 21:53] LABS: Anion Gap 16 mmol/L (10-20); BUN (Urea Nitrogen) 26 mg/dL (9.8-20.1); Calc. Creatinine Clearance 51 mL/min (70-130); Calcium 9.4 mg/dL (7.8-10.44); Carbon Dioxide 20 mmol/L (23-31); Chloride 96 mmol/L (98-107); Estimated GFR 46; Glucose 205 mg/dL (83-110); Potassium 4.7 mmol/L (3.5-5.1); Sodium 127 mmol/L (136-145)
[2023-05-11] MEDS: Insulin Glargine 30 UNITS/0.3 ML VIAL SC SCH (22:05)
[2023-05-12 05:46] LABS: Anion Gap 14 mmol/L (10-20); BUN (Urea Nitrogen) 25 mg/dL (9.8-20.1); Calc. Creatinine Clearance 75 mL/min (70-130); Calcium 8.8 mg/dL (7.8-10.44); Carbon Dioxide 21 mmol/L (23-31); Chloride 97 mmol/L (98-107); Estimated GFR 73; Glucose 170 mg/dL (83-110); Magnesium 2.1 mg/dL (1.6-2.6); Potassium 4.1 mmol/L (3.5-5.1); Sodium 128 mmol/L (136-145)
[2023-05-12] MEDS: Escitalopram Oxalate 10 mg Tablet PO SCH (10:31)
[2023-05-12 10:36] LABS: Anion Gap 18 mmol/L (10-20); BUN (Urea Nitrogen) 24 mg/dL (9.8-20.1); Calc. Creatinine Clearance 69 mL/min (70-130); Calcium 9.5 mg/dL (7.8-10.44); Carbon Dioxide 19 mmol/L (23-31); Chloride 98 mmol/L (98-107); Estimated GFR 66; Glucose 168 mg/dL (83-110); Potassium 4.1 mmol/L (3.5-5.1); Sodium 131 mmol/L (136-145)
[2023-05-12] MEDS: Fludrocortisone Acetate 0.1 MG TAB PO SCH (18:26)
[2023-05-12] MEDS: Insulin Glargine 30 UNITS/0.3 ML VIAL SC SCH (20:29)
[2023-05-12] MEDS: HumaLOG 300 UNITS/3 ML VIAL SC PRN (22:23)
[2023-05-12] MEDS: DorzolamidE/Timolol 2%/0.5% Ophth Soln 10 ml Bottle EA EYE SCH (22:23)
[2023-05-13 06:02] LABS: Anion Gap 16 mmol/L (10-20); BUN (Urea Nitrogen) 27 mg/dL (9.8-20.1); Calc. Creatinine Clearance 70 mL/min (70-130); Calcium 8.8 mg/dL (7.8-10.44); Carbon Dioxide 22 mmol/L (23-31); Chloride 99 mmol/L (98-107); Estimated GFR 67; Glucose 173 mg/dL (83-110); Magnesium 2.3 mg/dL (1.6-2.6); Potassium 3.7 mmol/L (3.5-5.1); Sodium 133 mmol/L (136-145)
[2023-05-13] MEDS: Enoxaparin 40 MG (0.4 mL) SYRINGE SC SCH (09:53)
[2023-05-13] MEDS: Fludrocortisone Acetate 0.1 MG TAB PO SCH (09:54)
[2023-05-13 16:04] VITALS: BP 127/60; TEMP 98.6
[2023-05-14] MEDS ORDERED: Lisinopril 5 MG TAB PO SCH (09:00)
== END 2023-05-13 16:20 | DRG 261 ==
LOC: ERS 11:37 → SUATTDRO 11:37 → 2NO 13:36 → OBSVTOIN 05-09 08:07
PROVIDERS: ADMIT Family Medicine; ATTEND Internal Medicine
PROC: 0JH632Z Insertion of Monitoring Device into Chest Subcutaneous Tissue and Fascia, Percutaneous Approach (ICD-10-PCS; principal; 2023-05-10)
PROC: 4A10X4Z Monitoring of Central Nervous Electrical Activity, External Approach (ICD-10-PCS; 2023-05-12)
DX: I95.1 Orthostatic hypotension (principal); E22.2 Syndrome of inappropriate secretion of antidiuretic hormone; N17.9 Acute kidney failure, unspecified; N39.0 Urinary tract infection, site not specified; E78.5 Hyperlipidemia, unspecified; F32.A Depression, unspecified; E11.65 Type 2 diabetes mellitus with hyperglycemia; E11.649 Type 2 diabetes mellitus with hypoglycemia without coma; E87.6 Hypokalemia; R00.1 Bradycardia, unspecified; W19.XXXA Unspecified fall, initial encounter; E11.22 Type 2 diabetes mellitus with diabetic chronic kidney disease; I12.9 Hypertensive chronic kidney disease with stage 1 through stage 4 chronic kidney disease, or unspecified chronic kidney disease; N18.2 Chronic kidney disease, stage 2 (mild); Y92.89 Other specified places as the place of occurrence of the external cause; Z88.8 Allergy status to other drugs, medicaments and biological substances; Z79.4 Long term (current) use of insulin; Z90.710 Acquired absence of both cervix and uterus; Z90.49 Acquired absence of other specified parts of digestive tract; Z88.0 Allergy status to penicillin; Z79.899 Other long term (current) drug therapy
CPT/HCPCS: 33285; 36415; 36416; 70450; 70551; 71045; 72125; 80048; 80053; 80061; 80076; 81001; 82607; 83036; 83735; 83930; 83935; 84443; 84484; 85025; 85610; 85730; 93005; 93306; 95711; 95819; 96361; 96374; C1764; G0378; J1650; J1815; J2405